=== PATIENT | female | born 1960 | race Caucasian/White ===

== ENCOUNTER 2017-02-11 20:15 | Emergency (ER) | payer BC ==
[2017-02-11] MEDS ORDERED: PROPARACAINE HCL OPTH 15ML BTL OPTH ONE (20:36)
--- NOTE | 2017-02-11 20:37 | Emergency Department Record ---
History of Present Illness - General Chief complaint: Eye Problem Stated complaint: SOMETHING IN RT EYE Time Seen by Provider: 02/11/17 20:35 Source: Patient Mode of Arrival: Ambulatory Limitations: No limitations - History of Present Illness Initial comments: 56 yo female presents to ED for evaluation of blurry vision and FB sensation to the right eye that began after getting hair dye in her right eye 7.5 hours ago. Patient reports that she flushed her eye very well, but her symptoms became more noticeable this evening. Patient denies injury to the eye, denies drainage , fevers, chills, or recent illness. Patient denies health problems at her baseline. MD chief complaint: Eye redness, Foreign body, Vision change Onset/Timin -: Hour(s) Onset Description: Sudden Location: Right eye Place: Other If Injury: Chemical exposure Eye Symptoms: Burning, Blurry vision Severity: Mild Severity scale (1-10): 2 If Pain, Quality: Burning Consistency: Constant Associated Symptoms: None Treatments Prior to Arrival: Irrigated eye - Related Data Visual acuity (L) = 20/: 70 Visual acuity (R) = 20/: 70 With correction: Yes (20/50 ou) Home Medications Medication Instructions Recorded Confirmed Last Taken Ibuprofen [Ibuprofen] 800 mg PO ASDIR 02/11/17 02/11/17 Unknown Meloxicam [Meloxicam] 15 mg PO QHS 02/11/17 02/11/17 02/10/17 Allergies Allergy/AdvReac Type Severity Reaction Status Date / Time No Known Drug Allergies Allergy Verified 02/11/17 20:19 Travel Screening - Travel/Exposure Within Last 30 Days Have you traveled within the last 30 days?: No - Travel/Exposure Within Last Year Have you traveled outside the [place] in the last year?: No - Additonal Travel Details Have you been exposed to anyone with a communicable illness?: No - Travel Symptoms Symptom Screening: None Review of Systems Constitutional: Denies: Chills, Fever, Malaise, Night sweats Eyes: Reports: Eye pain, Photophobia, Vision change. Denies: Eye discharge ENT: Denies: Congestion, Ear pain, Epistaxis Respiratory: Denies: Cough, Dyspnea Cardiovascular: Denies: Chest pain, Dyspnea on exertion Endocrine: Denies: Fatigue, Heat or cold intolerance Gastrointestinal: Denies: Abdominal pain, Nausea, Vomiting Genitourinary: Denies: Incontinence, Retention Musculoskeletal: Denies: Arthralgia, Back pain, Gout, Joint swelling Skin: Denies: Bruising, Change in color Neurological: Denies: Abnormal gait, Confusion, Headache, Seizure Psychiatric: Denies: Anxiety Hematological/Lymphatic: Denies: Anemia, Blood Clots Past Medical History - SOCIAL HISTORY Smoking Status: Never smoker Alcohol Use: None, Rare Drug Use: None - RESPIRATORY Hx Respiratory Disorders: No - CARDIOVASCULAR Hx Cardio Disorders: No - NEURO Hx Neuro Disorders: No - GI Hx GI Disorders: No - Hx Genitourinary Disorders: No - ENDOCRINE Hx Endocrine Disorders: No - MUSCULOSKELETAL Hx Musculoskeletal Disorders: Yes Comment:: siatica - PSYCH Hx Psych Problems: No - HEMATOLOGY/ONCOLOGY Hx Hematology/Oncology Disorders: No Family Medical History Any Significant Family History?: No Physical Exam - General General Appearance: Alert, Oriented x3, Cooperative, Mild distress Limitations: No limitations - Head Head exam: Atraumatic, Normocephalic, Normal inspection Head exam detail: negative: Abrasion, Contusion, Rodriguez's sign, General tenderness, Hematoma, Laceration - Eye Eye exam: Normal appearance. negative: Conjunctival injection, Periorbital swelling, Periorbital tenderness, Scleral icterus With correction: Yes (20/50 ou) - ENT Ear exam: negative: Auricular hematoma, Auricular trauma Nasal Exam: negative: Active bleeding, Discharge, Dried blood, Foreign body Mouth exam: negative: Drooling, Laceration, Muffled voice, Tongue elevation - Neck Neck exam: Normal inspection. negative: Meningismus, Tenderness - Respiratory Respiratory exam: Normal lung sounds bilaterally. negative: Rales, Respiratory distress, Rhonchi, Stridor - Cardiovascular Cardiovascular Exam: Regular rate, Normal rhythm, Normal heart sounds - GI/Abdominal GI/Abdominal exam: Soft. negative: Rebound, Rigid, Tenderness - Rectal Rectal exam: Deferred - exam: Deferred - Extremities Extremities exam: Normal inspection. negative: Calf tenderness, Pedal edema, Tenderness - Back Back exam: Denies: CVA tenderness (R), CVA tenderness (L) - Neurological Neurological exam: Alert, Normal gait, Oriented X3 - Psychiatric Psychiatric exam: Normal affect, Normal mood - Skin Skin exam: Normal color. negative: Abrasion Type of lesion: negative: abrasion Course Vital Signs 02/11/17 20:22 Temperature 97.5 F L Pulse Rate [ 83 Pulse Ox Probe] Respiratory 16 Rate Blood Pressure 141/83 [Left Arm] Pulse Ox 97 - Reevaluation(s) Reevaluation #1: 02/11/17 20:40 Eye examination: VA reviewed, 20/70 with each eye individually. pH 7 on examination, florescein staining and Wood's lamp examination does not demonstrate and corneal abrasion on examination. No FB identified on upper/ lower lid eversion as well. Patient was updated on all findings, will initiate treatment with Gentamicin ophthalmic drops and instructions to follow-up with Dr. Arredondo on Monday. Patient was instructed to return for any worsening of her symptoms as well. Disposition Disposition: Discharge Clinical Impression: Sensation of foreign body in eye Disposition: Home, Self-Care Condition: (2) Stable Instructions: Eye Foreign Body (ED) Additional Instructions: Return to ED if your symptoms worsen or if you have any concerns. Gentamycin as directed. Follow-up with Dr. Arredondo Monday as directed, call for appointment. Referrals: PARI ARREDONDO [MEDICAL DOCTOR] - Forms: Patient Portal Access Time of Disposition: 20:36 Quality - Quality Measures Quality Measures: N/A - Blood Pressure Screening Does Patient Have Any of the Following: No Blood Pressure Classification: Pre-Hypertensive BP Reading Systolic Measurement: 141 Diastolic Measurement: 83 Screening for High Blood Pressure: < Pre-Hypertensive BP, F/U Documented > [ [id number]] Pre-Hypertensive Follow-up Interventions: Referral to alternative/primary care provider.
[2017-02-11] MEDS ORDERED: GENTAMICIN SULFATE 0.3% OPTH 5 ML BTL OPTH SCH (20:45)
== END 2017-02-11 20:55 | disposition home or self-care (01) ==
LOC: ER 20:15
DX: H53.8 Other visual disturbances (principal)
CPT/HCPCS: 99282

== ENCOUNTER 2017-09-20 09:29 | Day surgery (SDC) | payer BC ==
[~2017-09-20 09:29] MED LIST: ACETAMINOPHEN 1,000 MG/100 ML BTL IV ONE; CEFAZOLIN 2 Gram 2 GM/50 ML BAG IVPB ONE
[2017-09-20] MEDS ORDERED: HYDROMORPHONE HCL 2 MG/ML VIAL IV ONE (09:30)
[2017-09-20] MEDS ORDERED: PROPOFOL 10 MG/ML VIAL IV ONE (09:30)
[2017-09-20] MEDS ORDERED: DEXAMETHASONE 4 MG/ML 1ML VIAL IVP ONE (09:30)
[2017-09-20] MEDS ORDERED: MORPHINE SULFATE PF 10MG/10ML VIAL IV ONE (09:30)
[2017-09-20] MEDS ORDERED: LIDOCAINE 2% MDV (20MG/ML) 20ML VIAL IV ONE (09:30)
[2017-09-20] MEDS ORDERED: KETOROLAC 30 MG/ML VIAL IVP ONE (09:30)
[2017-09-20] MEDS ORDERED: EPINEPHRINE 1 MG/ML AMPUL SQ ONE (09:30)
[2017-09-20] MEDS ORDERED: METOCLOPRAMIDE HCL 10 MG/2 ML VIAL IVP ONE (09:30)
[2017-09-20] MEDS ORDERED: BUPIVACAINE 0.5% W/EPI MPF 30 ML VIAL IVP ONE (09:30)
[2017-09-20] MEDS ORDERED: METHYLPREDNISOLONE 40MG/VIAL IM ONE (09:30)
[2017-09-20] MEDS ORDERED: SEVOFLURANE 250 ML INH ONE (09:30)
[2017-09-20] MEDS ORDERED: ONDANSETRON HCL IV 4 MG/2 ML VIAL IVP ONE (09:30)
--- NOTE | 2017-09-21 08:03 | Operative Note ---
DATE: 09/20/2017. PREOPERATIVE DIAGNOSIS: SEVERE IMPINGEMENT OF THE RIGHT SHOULDER. QUESTION TEAR OF THE ROTATOR CUFF. POSTOPERATIVE DIAGNOSES: 1. SEVERE EXTERNAL IMPINGEMENT, RIGHT SHOULDER. 2. COMPLEX GLENOHUMERAL LABRAL TEAR FROM APPROXIMATELY THE 12 O'CLOCK TO 4 O' CLOCK POSITION. 3. ADVANCED ARTHROSIS, RIGHT DISTAL CLAVICLE. 4. ADHESIVE CAPSULITIS, RIGHT SHOULDER. PROCEDURES: 1. SHOULDER ARTHROSCOPY WITH INTRA-ARTICULAR DEBRIDEMENT. 2. RIGHT SHOULDER OPEN ACROMIOPLASTY, CORACOACROMIAL LIGAMENT RESECTION, AND SUBACROMIAL BURSECTOMY. 3. RIGHT SHOULDER DISTAL CLAVICLE RESECTION. 4. RIGHT SHOULDER MANIPULATION UNDER ANESTHESIA. STAFF SURGEON: Jose Rodriguez M.D. ANESTHESIA: General. PREPARATION: ChloraPrep. INDIVIDUAL CONSIDERATIONS: None. DESCRIPTION OF PROCEDURE: The patient was taken to the operating and placed supine on the operating table. She had a successful induction of a general anesthetic. She was then placed in a semi-seated beach chair position. Examination under anesthesia showed that she had adhesive capsulitis. I felt resistance to motion at about 110 degrees of forward flexion and abduction. I manipulated her to full motion, and there was no instability. The patient had posterior portal identified for arthroscopy. The skin was infiltrated with 0.5% Marcaine with epinephrine prior. An 18-gauge spinal needle was easily placed in the joint, and the joint was inflated with normal saline. A stab wound was made, a blunt-tipped trocar for the scope was placed in the joint, and the joint was inflated with normal saline. An anterior accessory portal was then made just inferior to the intact long head of the biceps tendon in a retrograde fashion with a Wissinger jorge luis, and the joint was irrigated out. The patient had fraying of the labrum from 12 o'clock to 4 o' clock. This was debrided. The long head was good. The glenohumeral joint was good. The subscapularis tendon was normal. The supraspinatus, infraspinatus, and teres minor looked normal. However the supraspinatus had areas of injection consistent with inflammation. No loose bodies were seen in the inferior gutter. After irrigation, the portals were closed with adela. The patient had an anterior approach to the subacromial space and distal clavicle. The skin was again infiltrated with 0.5% Marcaine with epinephrine prior. Sharp dissection was carried down through the skin and subcutaneous tissue. Small veins were coagulated with a Bovie. An anterior deltoid interval was developed. Care was taken not to split the deltoid more than about 4.0 cm distal to the anterior tip of the acromion to prevent injury to the axillary nerve. Once in the subacromial space, there was a very thick bursa and large spurs. The deltoid was then taken subperiosteally off the anterior aspect of the acromion, over the top of the intact coracoacromial ligament, and off the anterior aspect of the degenerated distal clavicle. The coracoacromial ligament was resected with a Bovie. The distal clavicle was resected with an oscillating saw, taking a little under 1.0 cm. The patient had a downsloping acromion with spurs, especially extending from the acromioclavicular joint. An anterior acromioplasty was performed, taking 6.0 to 7.0 mm anteriorly and then tapering to a wedge posteromedially to include the spurs. The undersurface was then smoothed off with a rasp. I then performed a complete bursectomy. The bursa in some areas was 3.0 to 4.0 mm thick. I now had a good look at the rotator cuff, and it looked intact. The supraspinatus looked obviously contused and abraded, but it did not need to be repaired. After irrigation I placed a 22-gauge needle through the skin and into the joint. I then reattached the deltoid to the remaining acromion with multiple interrupted #2 Vicryl, going directly through the bony acromion. The periosteal cuff and distal clavicle were closed with a running #2 Vicryl. The anterior deltoid interval was closed with running #1 Vicryl. Subcutaneous was closed with #2-0+ Vicryl. The skin was closed with running #3-[address] an 18-gauge spinal needle into the subacromial space. Into that space I injected 10 mL of 0.5% Marcaine along with 10 mg of morphine. Through the previously placed 22-gauge needle into the joint I then placed 5.0 mL of Marcaine with epinephrine along with 40 mg of Depo Medrol. A sterile Bulkee compressive dressing and sling were applied. The patient tolerated the procedures well, and needle and sponge counts were correct. Estimated blood loss was minimal, and she was taken back to to Recovery in good condition. There were no complications. Job Number: [id number] cc: Wes Benitez
== END 2017-09-20 16:25 | disposition home or self-care (01) ==
LOC: SUR 09:29
PROVIDERS: ATTEND Orthopaedic Surgery
DX: M75.41 Impingement syndrome of right shoulder (principal); S43.431A Superior glenoid labrum lesion of right shoulder, initial encounter; M75.01 Adhesive capsulitis of right shoulder; M19.011 Primary osteoarthritis, right shoulder
CPT/HCPCS: 29822; 23415; 23700; 01630; J1885; J2405; J1170; J0690; J0171; J1030; J2765